=== PATIENT | male | born 1970 | race Two or more races ===

== ENCOUNTER 2018-08-24 13:17 | Outpatient (CLI) | payer OTHER ==
[~2018-08-24 13:17] MED LIST: LOSARTAN POTASS50 MG; METFORMIN HCL500 M2; PERCOCET 5/3251 TAB PO; PRILOSEC2.5 MG
== END 2018-08-24 13:50 | disposition home or self-care (01) ==
LOC: MRI 13:17
DX: M25.561 Pain in right knee (principal)
CPT/HCPCS: 73718

== ENCOUNTER → 2018-09-30 06:35 | Outpatient (CLI) | payer OTHER | END | disposition home or self-care (01) | LOC: LAB 06:35 | DX: D68.8 Other specified coagulation defects (principal); E78.2 Mixed hyperlipidemia; N39.0 Urinary tract infection, site not specified; R07.89 Other chest pain; Z01.818 Encounter for other preprocedural examination; I10 Essential (primary) hypertension ==

== ENCOUNTER 2019-09-14 12:57 | Outpatient (CLI) | payer OTHER | END 2019-09-14 13:03 | disposition home or self-care (01) | LOC: RAD 12:57 | DX: M25.561 Pain in right knee (principal); M25.572 Pain in left ankle and joints of left foot ==

== ENCOUNTER 2021-03-18 12:51 | Outpatient (CLI) | payer OTHER | END 2021-03-18 12:59 | disposition home or self-care (01) | LOC: RAD 12:51 | PROVIDERS: ATTEND Orthopaedic Surgery | DX: M25.561 Pain in right knee (principal); M25.571 Pain in right ankle and joints of right foot ==